=== PATIENT | female | born 1985 | race Caucasian/White ===

== ENCOUNTER 2023-01-09 13:53 | Outpatient (CLI) | payer BC, SELFPAY ==
--- NOTE | 2023-01-09 14:18 | XR_ITS ---
WS: [id number] Sacrum and coccyx, 3 views, 01/09/2023 Clinical Data: M53.3 - Sacrococcygeal disorders, not elsewhere classified Comparison: None. Findings: No fractures or dislocations are seen. The SI joints and pubic symphysis are unremarkable. No bone de struction or erosion is seen. XR/XR sacrum coccyx min 2V [id number] Impression: Negative sacrum and coccyx.
--- NOTE | 2023-01-09 14:18 | XR_ITS ---
WS: [email or web address] Pelvis, 3 views, 01/09/2023 Clinical Data: M53.3 - Sacrococcygeal disorders, not elsewhere classified Comparison: None. Findings: No fractures or dislocations are seen. The SI joints and pubic symphysis are intact. The soft tissues are not remarkable. The hips are normal. XR/XR pelvis min 3V [id number] Impression: Negative for fracture.
== END 2023-01-09 13:54 | disposition home or self-care (01) ==
LOC: RAD 14:01
PROVIDERS: Visit Provider Anesthesiology Pain Medicine
DX: M53.3 Sacrococcygeal disorders, not elsewhere classified (principal)
CPT/HCPCS: 72190; 72220